=== PATIENT | male | born 1970 | race Caucasian/White ===

== ENCOUNTER 2018-02-22 08:10 | Emergency (ER) ==
[2018-02-22 08:14] VITALS: BP 158/85; TEMP 97.7; BMI 26.6
--- NOTE | 2018-02-22 09:03 | ED.PDOC ---
General ED Provider: Dr. BILL CHASE Chief Complaint: Scrotal Pain Stated Complaint: Having severe pain in Lower waigoqj-ztjcdjagfz-lmnxquwy region into bilat testicles.Stated it feels like someone "kicked me in the balls ". States onset of pain yesterday and this morning awakened in severe pain. After triage and put in exam room, RN attempted to get additonal history, patient started cursing our RN Elizabeth swearing we did not care and demanding pain meds. Requesting that patient get undressed for examinination and patient continoulsy cursing making allegations about ER staff of not caring for his complaints. States has difficulty urinating and can not get his stream started. I spoke with patient and explained that in order to treat him I needed to examine him to correctly assess his condition and determine course of treatment. He agreed to disrobe for examinaton. Examination conducted and advised pt needed a urine specimen/Elizabeth witnessed Time Seen by Physician: 08:25 Mode of Arrival: Wheelchair Information Source: Patient Nursing and Triage Documentation Reviewed and Agree: Yes Does patient meet sepsis criteria?: No System Inflammatory Response Syndrome: Not Applicable Sepsis Protocol: For patient's 13 years and over: Temp is 96.8 and below OR 101 and greater Pulse >90 BPM Resp >20/minute Acutely Altered Mental Status Are patient's symptoms suggestive of a new infection, such as: -Pneumonia -Skin, Soft Tissue -Endocarditis -UTI -Bone, Joint Infection -Implantable Device -Acute Abdominal Infection -Wound Infection -Meningitis -Blood Stream Catheter Infection -Unknown Complaint Exam - Complaint/Exam Patient Complains of: Reports: Scrotal pain, Groin pain Onset/Duration: 24 hrs Timing: Constant Episodes of Voiding Over Last 12 Hours: 1 Initial Severity: Moderate Current Severity: Moderate Location of Pain: Reports: Diffuse, Right, Left, Groin, Scrotum, Testicle, Suprapubic Character: Reports: Sharp, Constant pressure, Cramping Aggravating: Reports: Straining Alleviating: Reports: Scrotal elevation, Movement Associated Signs and Symptoms: Reports: Scrotal pain, Scrotal swelling Related History: Reports: Similar episode Testicular Torsion Risk Factors: Reports: None Surgical Obstruction Risk Factors: Reports: None Related Surgical History: Reports: None Abdominal Findings: Present: Inguinal swelling. Absent: Abdominal distention, Unequal femoral pulses, Rebound tenderness, Peritoneal signs, McBurney's Point tender, CVA Tenderness, Hernia Genitalia Exam: Present: Normal findings (patient guarding to exam) Differential Diagnoses: Epididymitis, Testicular Torsion (hernia) Review of Systems - Review Of Systems Constitutional: Reports: No symptoms Eyes: Reports: No symptoms Ears, Nose, Mouth, Throat: Reports: No symptoms Respiratory: Reports: No symptoms Cardiac: Reports: No symptoms GI: Reports: No symptoms : Reports: No symptoms, Frequency, Pain, Urgency Musculoskeletal: Reports: No symptoms Skin: Reports: No symptoms Neurological: Reports: No symptoms Endocrine: Reports: No symptoms Hematologic/Lymphatic: Reports: No symptoms All Other Systems: Reviewed and Negative Past Medical History - Past Medical History Endocrine: Reports: Unknown Cardiovascular: Reports: Unknown Respiratory: Reports: Unknown Hematological: Reports: Unknown Gastrointestinal: Reports: Unknown Genitourinary: Reports: Unknown Neuro/Psych: Reports: Unknown Musculoskeletal: Reports: Unknown Cancer: Reports: Unknown - Surgical History General Surgical History: Reports: Unknown - Family History Family History: Reports: Unknown - Social History Smoking Status: Current every day smoker Hx Substance Use: No Alcohol Screening: Occasionally Physical Exam - Physical Exam Appearance: Ill-appearing, Thin Ill-appearing: Mild Pain Distress: Moderate Eyes: LAI, EOMI, Conjunctiva clear ENT: Ears normal, Nose normal, Oropharynx normal Neck: Supple Respiratory: Airway patent, Breath sounds clear, Breath sounds equal, Respirations nonlabored Cardiovascular: RRR, Pulses normal, No rub, No murmur GI/: Soft, Nontender, No masses, Bowel sounds normal, Bowel sounds hypoactive Musculoskeletal: Normal strength, ROM intact, No edema, No calf tenderness Skin: Warm, Dry, Normal color Neurological: Sensation intact, Motor intact, Reflexes intact, Cranial nerves intact, Alert, Oriented Psychiatric: Anxious Critical Care Note - Critical Care Note Total Time (mins): 0 Course - Course Vital Signs: Temp Pulse Resp BP Pulse Ox 02/22/18 08:10 97.7 F 94 H 20 158/85 H 99 Departure - Departure Time of Disposition: 09:00 Disposition: AMA Discharge Problem: Testicular/scrotal pain, Urinary hesitancy Condition: Fair Pt referred to PMD for follow-up: No (no chance to discuss due to abrupt departure) IPMP verified?: No Additional Instructions: Afer exam, Urine specimen requested/ Patient re-dressed and walked out of department AMA Allergies/Adverse Reactions: Allergies Penicillins Adverse Reaction (Verified 02/22/18 08:15) Home Medications: Ambulatory Orders 1 [No Reported Medications] 02/22/18 Disposition Discussed With: Other (After examing patient and being faced with needing UA patient dressed self and left department without further comment other that -where is the exit!)
== END 2018-02-22 09:00 | disposition left against medical advice (07) ==
LOC: ED 08:10
DX: N50.82 Scrotal pain (principal); R39.11 Hesitancy of micturition; R10.30 Lower abdominal pain, unspecified; F17.210 Nicotine dependence, cigarettes, uncomplicated
CPT/HCPCS: 99284